=== PATIENT | male | born 1970 | race Caucasian/White ===

== ENCOUNTER → 2020-10-21 15:40 | Outpatient (BNVA) | payer OTHER, SELFPAY | PROVIDERS: Family Provider Family Medicine; PCP Family Medicine; Visit Provider Podiatrist Foot & Ankle Surgery | DX: M72.2 Plantar fascial fibromatosis (principal); M79.671 Pain in right foot; M79.672 Pain in left foot | CPT/HCPCS: 73630 ==

== ENCOUNTER 2020-11-17 06:17 | Outpatient (CLI) | payer OTHER, SELFPAY ==
--- NOTE | 2020-11-17 06:23 | AMB.MCA ---
Patient Information Referred by: 50-year-old white male presents for monoclonal antibody infusion for COVID-19. He is approximately 3 to 4 days post positive Covid. He was tested on an outside clinic. He has had significant cough but noncreased oxygen need. He denies diarrhea a lot of myalgias and flulike symptoms. Symptom onset date: 11/13/20 COVID 19 common symptoms: positive fever(s), chills, cough, non-productive cough, fatigue, body aches, headache(s), nasal congestion and nausea; negative productive cough, dyspnea, loss of sense of smell and/or taste, throat pain, vomiting or diarrhea COVID 19 other sytmptoms: negative requiring oxygen Severity: mild Treatment prior to arrival: acetaminophen OZH COVID test results: No Data to Display outside results available, scanned Criteria/Plan Inclusion/Exclusion Criteria weight >/= 40kg has diabetes not requiring hospitalization, not requiring oxygen (if not chronically on oxygen) and no increase oxygen requirement (if chronically on oxygen) Patient education patient/family/caregiver received/reviewed fact sheet, Emergency Use Authorization/unapproved drug status discussed with patient/family/caregiver, alternatives to this treatment discussed with patient/family/caregiver, risks and benefits of medication reviewed with patient/family/caregiver, patient/family/caregiver given opportunity for questions, which were answered and patient consents to receiving Monoclonal Antibody Treatment Plan for treatment Meets criteria for Monoclonal Antibody infusion Ordering Monoclonal Antibody infusion for today
[2020-11-17 06:26] VITALS: BP 116/75; PULSE 85; RESP 20; TEMP 36.9; O2SAT 96
--- NOTE | 2020-11-17 06:34 | PC.NURSE ---
patient signed consent form for BAM infusion
[2020-11-17 07:34] VITALS: BP 115/78; PULSE 83; RESP 18; TEMP 36.6; O2SAT 98
[2020-11-17 08:01] VITALS: BP 126/77; PULSE 83; RESP 18; TEMP 37.6; O2SAT 94
[2020-11-17 09:12] VITALS: BP 114/80; PULSE 85; RESP 18; TEMP 37.9
--- NOTE | 2020-11-17 09:13 | PC.NURSE ---
Post fusion 1 hour, ready to be discharge.. Pt stable and ready to go. F/U PCP
== END 2020-11-17 09:00 | disposition home or self-care (01) ==
LOC: ER 11-19 14:45
PROVIDERS: PCP Family Medicine; Visit Provider Nurse Practitioner
DX: U07.1 COVID-19 (principal)

== ENCOUNTER → 2021-12-30 09:15 | Outpatient (BNVA) | payer OTHER, SELFPAY | PROVIDERS: PCP Family Medicine; Visit Provider Family Medicine | DX: Z00.00 Encounter for general adult medical examination without abnormal findings (principal); Z51.81 Encounter for therapeutic drug level monitoring; Z79.1 Long term (current) use of non-steroidal anti-inflammatories (NSAID); E11.8 Type 2 diabetes mellitus with unspecified complications | CPT/HCPCS: 80053; 83036; 85025 ==

== ENCOUNTER → 2022-10-12 08:37 | Outpatient (BNVA) | payer OTHER, SELFPAY | PROVIDERS: PCP Family Medicine; Visit Provider Family Medicine | DX: E11.9 Type 2 diabetes mellitus without complications (principal); E78.00 Pure hypercholesterolemia, unspecified; Z51.81 Encounter for therapeutic drug level monitoring; Z13.220 Encounter for screening for lipoid disorders | CPT/HCPCS: 80053; 80061; 83036; 85025 ==

== ENCOUNTER 2023-07-31 10:08 | Emergency (ER) | payer OTHER, SELFPAY ==
[2023-07-31 10:45] VITALS: BP 124/82; PULSE 67; RESP 18; TEMP 37; O2SAT 96; BMI 28.7
[2023-07-31 10:50] LABS: Glucose Point of Care 233 mg/dL (70-110)
--- NOTE | 2023-07-31 10:54 | ECG_ITS ---
[facility] Test Date: 2023-07-31 Pat Name: Werner Fowler Department: Room: Gender: Male Vp Cardiovascular Service Line: : 1970 Requested By: Jorge A Lester Order Number: [id number] Odalys MD: Noel Jarrett M.D. Measurements Intervals [place] Rate: 62 P: 64 LA: 181 QRS: 50 QRSD: 94 T: 14 QT: 396 QTc: 403 Interpretive Statements SINUS RHYTHM WITH FREQUENT VENTRICULAR PREMATURE COMPLEXES No previous ECG available for comparison Electronically Signed On 07-31-2023 16:29:[address] Noel Jarrett M.D. [id number]
[2023-07-31 11:22] LABS: Basophils # 0.1 10^3/uL (0.0-0.1); Basophils % 1.1 %; Eosinophils # 0.2 10^3/uL (0.0-0.8); Eosinophils % 1.9 %; Hematocrit 48.2 % (37-53); Lymphocytes # 3.1 10^3/uL (0.8-4.8); Mean Corpuscular HGB Conc 32.8 g/dL (30-55); Mean Corpuscular Hemoglobin 28.7 pg (27-33); Mean Corpuscular Volume 87.5 fl (82-101); Mean Platelet Volume 10.4 fL (7.4-10.4); Monocytes # 0.9 10^3/uL (0.2-0.9); Monocytes % 9.1 %; Neutrophils # 5.66 10^3/uL (1.8-7.7); Neutrophils % 56.5 %; Nucleated Red Blood Cells % 0 %; Platelet Count 277 10^3/cmm (157-399); Red Blood Count 5.51 10^6/uL (3.85-5.65); Red Cell Distribution Width 11.6 % (12.1-15.1); White Blood Count 10.01 10^3/uL (3.29-11.43)
[2023-07-31 11:39] LABS: Alanine Aminotransferase 24 U/L (0-41); Albumin Level 4.3 g/dL (3.5-5.2); Alkaline Phosphatase 90 U/L (40-130); Anion Gap 12.6 (5-19); Aspartate Amino Transferase 24 U/L (0-40); Blood Urea Nitrogen 13 mg/dL (6-20); Calcium 9.3 mg/dL (8.5-10.5); Carbon Dioxide 28 mmol/L (22-29); Chloride 99 mmol/L (98-107); Globulin 2.9 g/dL (1.3-4.6); Glomerular Filtration Rate 78.8 mL/min (90-130); Glucose 254 mg/dL (65-115); Osmolality Calculated 289 mOsm/kg (285-295); Potassium 4.6 mmol/L (3.5-5.1); Sodium 135 mmol/L (136-145); Total Bilirubin 0.8 mg/dL (0.15-1.2); Total Protein 7.2 g/dL (6.6-8.7)
--- NOTE | 2023-07-31 14:04 | ED_ITS ---
HPI - General Adult 2 General: Chief complaint: Weakness Stated complaint: headache, dizziness Time Seen by Provider: 07/31/23 13:45 Source: patient Mode of arrival: ambulatory Limitations: no limitations History of Present Illness: Patient is a very nice 53-year-old male who presents to the ED today along with his significant other for evaluation of an episode that occurred earlier at work today around 9:30 AM. Patient states his eyes began to jump and cross and he felt like his feet were weights and the rest of his legs were Jell-O. He states he has no other symptoms. Denies feeling dizzy or lightheaded. No visual loss. He states episode lasted a few minutes before subsiding. Upon arrival to the emergency department patient states he feels normal . He was able to ambulate here in the emergency department without difficulty or assistance. He denies slurred speech, altered mental status, numbness/tingling/weakness to his arms or legs currently, or visual changes. Patient states he is a diabetic. States he is not been very compliant on diet or checking his sugars. Onset (ago): hour(s) Relieving factors: none Exacerbating factors: none Associated symptoms: Deny chest pain, confusion, dyspnea, headache(s), malaise, nausea, rash, palpitations, syncope or vomiting Treatments prior to arrival: none Review of Systems 2 Const: Denies: fever(s), chills, fatigue or malaise Eyes: Reports: other (felt like eyes were jumping/crossing earlier but subsided now); Denies: change in vision, blurry vision, blind spots, photophobia, floaters or seeing flashes ENMT: Denies: throat pain, odynophagia, ear or mastoid pain, disequilibrium, nasal discharge, nasal congestion or sinus pain Card: Denies: chest pain, palpitations, irregular heart rhythm, lightheadedness, syncope or dyspnea on exertion Resp: Denies: dyspnea, productive cough or pain on inspiration GI: Denies: abdominal pain, nausea, vomiting, heartburn or diarrhea : Denies: difficulty urinating or dysuria Musc: Reports: muscle weakness (legs felt weak earlier-none currently); Denies: neck pain, back pain, extremity pain, extremity swelling or joint pain Skin/Breast: Denies: rash Neuro: Denies: headache(s), numbness in extremities, sensory changes, lack of coordination, frequent falls, dizziness, vertigo, confusion, behavioral changes, Slurred speech present, difficulty communicating thoughts or seizure-like activity PFSH ED 2 PFSH: Medical History Hypercholesteremia Amputation of index finger Type 2 diabetes mellitus Surgical History Hx of foot surgery Right foot S/P Achilles tendon repair Right achilles H/O shoulder surgery Social History Smoking and tobacco/nicotine status: tobacco/nicotine user, details unknown smokeless tobacco Smokeless tobacco details: Quit years ago Second hand smoke exposure: No Alcohol intake: current Alcohol intake frequency: holidays/special occasions only Substance/Drug Use: never Physical Exam 2 Const: COMMON NORMALS: no acute distress, average body habitus, patient oriented x3, no limitations, healthy appearing, alert and well nourished O RIENTATION/CONSCIOUSNESS: Yes awake, Yes oriented to person, Yes oriented to place and Yes oriented to time HENMT: COMMON NORMALS: normocephalic, atraumatic and EAC's normal HEAD & SCALP: normal to inspection, normocephalic and atraumatic FACE & SINUS: n ormal facial exam and face symmetric EXTERNAL AUDITORY CANAL: EAC's normal Eye: COMMON NORMALS: Equal, round and reactive pupils present and EOMs intact bilaterally GENERAL EYE: appearance normal, both eyes and all related structures and normal light reflex VISUAL [place]: No peripheral vision loss, No central vision loss, No left visual field cut, No right visual field cut, No bitemporal visual field cut, No binasal visual field cut and No visual field cut by quadrant ALIGNMENT: Yes alignment normal PUPIL: Yes Equal, round and reactive pupils present DIRECT OPHTHALMOSCOPY: Yes normal light reflex Neck/C-Spine: COMMON NORMALS: full ROM, no lymphadenopathy, supple and no meningeal signs Resp: COMMON NORMALS: normal respiratory effort and clear to auscultation bilaterally AUSCULTATION: clear to auscultation bilaterally Cardio: COMMON NORMALS: regular rate and regular rhythm RATE: regular rate RHYTHM: regular rhythm Extremity: COMMON NORMALS: normal to inspection, no clubbing, cyanosis or edema, no calf tenderness and no pedal edema GENERAL: Yes normal exam except as noted Neuro: PIETRO COMA SCALE: document GCS findings Pietro coma scale eye opening: Spontaneous Pietro coma scale verbal response: Orientated Pietro coma scale motor response: Obey commands [place] coma scale total score: 15 COMMON NORMALS: patient oriented x3, CN's II-XII intact bilaterally, moves all extremities, no focal motor deficits, no sensory deficits noted and gait normal SENSORIUM/ORIENTATION: Yes alert, Yes oriented to person, Yes oriented to place and Yes oriented to time MENINGEAL SIGNS: Yes no meningeal signs S PEECH: speech normal GAIT: Yes Normal gait present MOTOR EXAM: 5/5 motor strength present throughout Skin: COMMON NORMALS: no rashes or lesions noted GENERAL SKIN EXAM: no rashes or lesions noted Course 2 Vital Signs: Vital signs: Vital Signs Temperature 98.6 F 07/31/23 10:45 Pulse Rate 67 07/31/23 10:45 Respiratory Rate 18 07/31/23 10:45 Blood Pressure 124/82 07/31/23 10:45 Pulse Oximetry 96 07/31/23 10:45 Oxygen Delivery Me thod Room Air 07/31/23 10:45 MDM - General Adult Medical Decision Making Patient has a completely normal neurologic examination on today's visit. Based on history I do not have any concern at this time for TIA/CVA. Unknown exact etiology of his symptoms but at this time they do not seem emergently concerning. Blood work was obtained and essentially unremarkable apart from his elevated glucose. As previously stated, patient admitting has not been very compliant with his diet or checking his sugars. He has been taking his metformin. Recommend patient follow-up with his primary care provider by the end of the week for reevaluation. Strict return ED precautions given. Lab Data 07/31/23 11:04 07/31/23 11:04 Laboratory Results WBC 10.01 10^3/uL (3.29-11.43) 07/31/23 11:04 RBC 5.51 10^6/uL (3.85-5.65) 07/31/23 11:04 Hgb 15.80 g/dL (11.27-16.99) 07/31/23 11:04 Hct 48.2 % (37-53) 07/31/23 11:04 MCV 87.5 fl (82-101) 07/31/23 11:04 MCH 28.7 pg (27-33) 07/31/23 11:04 MCHC 32.8 g/dL (30-55) 07/31/23 11:04 RDW 11.6 % (12.1-15.1) L 07/31/23 11:04 Plt Count 277 10^3/cmm (157-399) 07/31/23 11:04 MPV 10.4 fL (7.4-10.4) 07/31/23 11:04 Neut % (Auto) 56.5 % 07/31/23 11:04 Lymph % (Auto) 31.0 % 07/31/23 11:04 Sully % (Auto) 9.1 % 07/31/23 11:04 Eos % (Auto) 1.9 % 07/31/23 11:04 Baso % (Auto) 1.1 % 07/31/23 11:04 Neut # (Auto) 5.66 10^3/uL (1.8-7.7) 07/31/23 11:04 Lymph # (Auto) 3.1 10^3/uL (0.8-4.8) 07/31/23 11:04 Sully # (Auto) 0.9 10^3/uL (0.2-0.9) 07/31/23 11:04 Eos # (Auto) 0.2 10^3/uL (0.0-0.8) 07/31/23 11:04 Baso # (Auto) 0.1 10^3/uL (0.0-0.1) 07/31/23 11:04 Nucleated RBC % (auto) 0 % 07/31/23 11:04 Nucleated RBCs # 0.0 /100WBC 07/31/23 11:04 Sodium 135 mmol/L (136-145) L 07/31/23 11:04 Potassium 4.6 mmol/L (3.5-5.1) 07/31/23 11:04 Chloride 99 mmol/L (98-107) 07/31/23 11:04 Carbon Dioxide 28 mmol/L (22-29) 07/31/23 11:04 Anion Gap 12.6 (5-19) 07/31/23 11:04 BUN 13 mg/dL (6-20) 07/31/23 11:04 Creatinine 1.0 mg/dL (0.7-1.2) 07/31/23 11:04 GFR Calculation 78.8 mL/min (90-130) L 07/31/23 11:04 Glucose 254 mg/dL (65-115) H 07/31/23 11:04 POC Glucose 233 mg/dL (70-110) H 07/31/23 10:47 Calculated Osmolality 289 mOsm/kg (285-295) 07/31/23 11:04 Calcium 9.3 mg/dL (8.5-10.5) 07/31/23 11:04 Total Bilirubin 0.8 mg/dL (0.15-1.2) 07/31/23 11:04 AST 24 U/L (0-40) 07/31/23 11:04 ALT 24 U/L (0-41) 07/31/23 11:04 Alkaline Phosphatase 90 U/L (40-130) 07/31/23 11:04 Total Protein 7.2 g/dL (6.6-8.7) 07/31/23 11:04 Albumin 4.3 g/dL (3.5-5.2) 07/31/23 11:04 Globulin 2.9 g/dL (1.3-4.6) 07/31/23 11:04 No radiology studies performed this visit Discharge Plan Discharge Patient Disposition: Home Clinical Impression: Transient leg weakness Condition: Stable Prescriptions: No Action (DME) blood-glucose meter Kit See Rx Instructions .Route Qty: 1 0RF Rx Instructions: As directed sertraline 50 mg tablet See Rx Instructions .ROUTE .COMPLEX Qty: 30 8RF Dose Instruction: Take 1 tablet by mouth once daily Rx Instructions: Take 1 tablet by mouth once daily atorvastatin 20 mg tablet See Rx Instructions .ROUTE .COMPLEX Qty: 30 8RF Dose Instruction: TAKE 1 TABLET BY MOUTH ONCE DAILY AT NIGHT Rx Instructions: TAKE 1 TABLET BY MOUTH ONCE DAILY AT NIGHT metformin 1,000 mg tablet 1,000 mg PO BID Qty: 60 3RF Discharge Orders: Discharge ED (Routine); Ordered 07/31/23 Ordered By: Linda Gallegos Referrals: Jaime Venegas MD [Primary Care Provider] - Activity Restrictions/Additional Instructions: As we discussed I would like you to follow-up with Dr. Venegas later this week for reevaluation. We need to see you back to the emergency department for complaints of severe headache, slurred speech, facial drooping, numbness/tingling/loss of sensation/weakness to your arms or legs, altered mental status, blurred or loss of vision, or any other concerns you may have. Coding Level of Care Code ED Data Input Clerk for Elda Ann
== END 2023-07-31 14:29 | disposition home or self-care (01) ==
PROVIDERS: Emergency Medicine; Emergency Provider Physician Assistant; PCP Family Medicine
DX: R53.1 Weakness (principal); Z79.84 Long term (current) use of oral hypoglycemic drugs; E11.9 Type 2 diabetes mellitus without complications; Z87.891 Personal history of nicotine dependence
CPT/HCPCS: 36415; 36416; 80053; 82962; 85025; 93005; 99284

== ENCOUNTER → 2023-08-13 16:35 | Outpatient (BNVA) | payer OTHER, SELFPAY | PROVIDERS: PCP Family Medicine; Visit Provider Family Medicine | DX: E11.9 Type 2 diabetes mellitus without complications (principal); E53.8 Deficiency of other specified B group vitamins | CPT/HCPCS: 82607; 83036 ==

== ENCOUNTER 2024-12-30 18:48 | Observation (INO) | payer OTHER, SELFPAY ==
--- OUTSIDE RECORDS SUMMARY | 2024-12-30 18:52 | XMS_ITS | Patient Health Record ---
Author Organization [facility] Address [address] [place], [place] [id number] Care Team Providers Care Career Placement Specialist Name Role Phone Jaime Venegas MD Primary Care Provider Arjun Lundberg MD, Shay Unavailable [phone] Allergies Allergen (clinical drug ingredient) Drug/Non Drug Allergy documented on EMR Reaction Allergy Type Onset Date Status penicillin Unknown Drug Allergy Active Reason For Referral No Information Medications Medication SIG (Take, Route, Frequency, Duration) Notes Start Date End Date Status Glucosamine and Chondroitin with MSM 400 mg-500 mg-250 mg 1 tab orally as directed Act jose Centrum Silver Therapeutic Multiple Vitamins with Minerals 1 tab orally once a day Acti ve Social History Tobacco Use: Social History Observation Description Date Details (start date - stop date) Never Smoker NA - NA Tobacco use: Question Answer Notes : nonsmoker Problems Problem Type SNOMED Code ICD Code Onset Dates Problem Status W/U Status Risk Notes Problem Solitary sacroiliitis (691221109) Sacroiliitis, not elsewhere classified (M46.1) Active confirmed Problem Low back pain (353970682) Low back pain (M54.5) Active confirmed Problem Lumbosacral spondylosis without myelopathy (55800934) Spondylosis without myelopathy or radiculopathy, lumbar region (M47.816) Active confirmed Problem Anxiety disorder (945744639) Other specified anxiety disorders (F41.8) Active confirmed Problem Sleep disorder (42786769) Other sleep disorders (G47.8) Active confirmed Problem Right hip pain (522216700801808) Pain in right hip (M25.551) Active confirmed Problem Arthralgia of the pelvic region and thigh (398089897) Pain in left hip (M25.552) Active confirmed Problem Radiculopathy due to lumbar intervertebral disc disorder (871486160885601) Intervertebral disc disorders with radiculopathy, lumbar region (M51.16) Active confirmed Problem Disorder of lumbar disc (593762386) Other intervertebral disc disorders, lumbar region (M51.86) Active confirmed Problem Myalgia (35297845) Myalgia (M79.1) Active confirmed Problem Long-term current use of drug therapy (684280589) Other care home (current) drug therapy (Z79.899) Active confirmed Plan Of Treatment No Information Insurance Providers Payer Name Payer Address Payer Phone Subscriber Number Group Number Insured Name Patient Relationship to Insured Coverage Start Date Coverage End Date [employer] [employer] [place] [address] [id number] [facility] Anabel Fowler Spouse - patient is the spouse of the insured Medical (General) History Medical History History ICD Code Left hip problems Low back pain Surgical History Surgery Date(Month/Year) Removal of rock in the right [place] [facility] 1990 Reconstruction of right Achilles tendon - [place] 2005 Partial amputation of left index finger - [facility] [place] 2010 Right rotator cuff - Dr. Elicia Munoz 2012 Left rotator cuff - Dr. Elicia gonzalez 2014 Left rotator cuff - [place] Dr. Nena orozco 2015 Hospitalization History Reason Date(Month/Year)
[2024-12-30 19:01] VITALS: BP 133/86; PULSE 81; RESP 16; TEMP 37.2; O2SAT 98; BMI 29.5
--- NOTE | 2024-12-30 19:19 | XRR_ITS ---
PROCEDURE INFORMATION: Exam: XR Right Hand Exam date and time: 12/30/2024 7:19 PM Age: 54 years old Clinical indication: Injury or trauma; Other: Punched glass; Blunt trauma (contusions or hematomas); Hand; Right TECHNIQUE: Imaging protocol: Radiologic exam of the right hand. Views: 3 or more views. COMPARISON: No relevant prior studies available. FINDINGS: Bones/joints: Normal. Soft tissues: Normal. XR/XR hand RT min 3V* [id number] IMPRESSION: No acute findings.
--- NOTE | 2024-12-30 19:25 | ED.C_ITS ---
HPI - Psych 2 General: Chief Complaint: Psychiatric Symptoms Stated Complaint: MHE Time Seen by Provider: 12/30/24 18:52 Source: patient Mode of arrival: ambulatory Limitations: no limitations History of Present Illness: 54-year-old male states he is having rel ationship issues with his he is very upset today states he feels like his mind is wandering he had punched a glass with his right hand. He states he has been depressed he has had some passing suicidal thoughts but no specific plans. Associated symptoms: Reports depression Related Data Previous Rx's ?Medication ?Instructions ?Recorded blood-glucose meter #1 ea 04/25/22 acyclovir 400 mg tablet 400 mg PO .5x/day 7 days #35 tabs 08/13/23 blood sugar diagnostic (Accu-Chek #100 ea 08/13/23 Guide test strips) blood-glucose meter (Accu-Chek #1 ea 08/13/23 Guide Glucose Meter) insulin detemir U-100 100 unit/mL 15 unit (0.15 mL) FOSS BCUT DAILY #15 08/13/23 (3 mL) subcutaneous pen mL lancets (Accu-Chek Softclix #100 ea 08/16/23 Lancets) insulin glargine U-300 conc 300 15 unit (0.05 mL) SUBC UT DAILY 09/10/23 unit/mL (1.5 mL) subcutaneous pen #4.5 mL (Toujeo SoloStar U-300 Insulin) metformin 1,000 mg tablet See Rx Instructions .Route 0 08/08/24 .COMPLEX #60 tabs atorvastatin 20 mg tablet See Rx Instructions .Route 0 09/09/24 .COMPLEX #30 tabs sertraline 50 mg tablet See Rx Instructions .Route 0 09/09/24 .COMPLEX #30 tabs Allergies Allergy/AdvReac Type Severity Reaction Status Date / Time Penicillins Allergy Mild Hives Verified 12/30/24 19:12 Review of Systems 2 Const: Denies: fever(s), chills, body aches or change in appetite ENMT: Denies: throat pain or dental pain Card: Denies: chest pain Resp: Denies: dyspnea GI: Denies: abdominal pain, nausea, vomiting or diarrhea Musc: Denies: neck pain or back pain Skin/Breast: Denies: rash Neuro: Denies: headache(s) Psych: Reports: depression PFSH ED 2 PFSH: Medical History COVID-19 11/2020 Hypercholesteremia Amputation of index finger Type 2 diabetes mellitus Surgical History Hx of foot surgery Right foot S/P Achilles tendon repair Right achilles H/O shoulder surgery Social History Smoking and tobacco/nicotine status: tobacco/nicotine user, details unknown smokeless tobacco Smokeless tobacco details: Quit years ago Second hand smoke exposure: No Alcohol intake: current Alcohol intake frequency: holidays/special occasions only Substance/Drug Use: never Physical Exam 2 Const: COMMON NORMALS: no acute distress, patient oriented x3 and healthy appearing HENMT: COMMON NORMALS: normocephalic and atraumatic HEAD & SCALP: n ormocephalic and atraumatic Eye: COMMON NORMALS: conjunctivae normal CONJUNCTIVA: Yes conjunctivae normal Neck/C-Spine: COMMON NORMALS: full ROM and supple Chest: COMMONS NORMALS: normal inspection of the chest Resp: COMMON NORMALS: normal respiratory effort Cardio: COMMON NORMALS: regular rate RATE: regular rate Extremity: COMMON NORMALS: normal to inspection and full ROM Neuro: COMMON NORMALS: patient oriented x3, moves all extremities and no focal motor deficits Psych: COMMON NORMALS: mental status grossly normal, Normal thought process present and cooperative THOUGHT PROCESS: Normal thought process present Skin: COMMON NORMALS: no rashes or lesions noted and no wounds GENERAL SKIN EXAM: no rashes or lesions noted Course 2 Vital Signs: Vital signs: Vital Signs Temperature 99.0 F 12/30/24 19:01 Pulse Rate 60 12/30/24 20:18 Respiratory Rate 16 12/30/24 19:01 Blood Pressure 131/82 12/30/24 20:18 Pulse Oximetry 95 12/30/24 20:18 Oxygen Delivery Me thod Room Air 12/30/24 20:18 MDM - Psych Medical Decision Making Patient presents for suicidal ideation he is medically cleared will admit at this time. Medical Records I reviewed the patient's medical records. Lab Data I reviewed the patient's lab results. 12/30/24 19:48 12/30/24 19:48 No radiology studies performed this visit Discharge Plan Discharge Patient Disposition: Admitted As Inpatient Admit Provider: Giovanni Albrecht Clinical Impression: Suicidal ideation Condition: Stable Coding Level of Care Code ED Environmental Health Safety Engineer for Elda Ann
[2024-12-30 19:54] LABS: Hematocrit 51.4 % (37-53); Hemoglobin 17.10 g/dL (11.27-16.99); Mean Corpuscular HGB Conc 33.3 g/dL (30-55); Mean Corpuscular Hemoglobin 28.6 pg (27-33); Mean Corpuscular Volume 86.0 fl (82-101); Nucleated Red Blood Cells % 0 %; Platelet Count 278 10^3/cmm (157-399); Red Blood Count 5.98 10^6/uL (3.85-5.65); White Blood Count 10.10 10^3/uL (3.29-11.43)
[2024-12-30 20:09] LABS: Alanine Aminotransferase 23 U/L (0-41); Albumin Level 4.5 g/dL (3.5-5.2); Alkaline Phosphatase 96 U/L (40-130); Anion Gap 18.2 (5-19); Aspartate Amino Transferase 17 U/L (0-40); Blood Urea Nitrogen 14 mg/dL (6-20); Calcium 9.5 mg/dL (8.5-10.5); Carbon Dioxide 23 mmol/L (22-29); Chloride 99 mmol/L (98-107); Creatinine Clr Calc Pharmacy 120.2471; Globulin 3.1 g/dL (1.3-4.6); Glucose 280 mg/dL (65-115); Osmolality Calculated 293 mOsm/kg (285-295); Potassium 4.2 mmol/L (3.5-5.1); Sodium 136 mmol/L (136-145); Total Protein 7.6 g/dL (6.6-8.7)
[2024-12-30 20:11] LABS: Acetaminophen < 5.0 ug/mL (10-30); Alcohol Level < 10 mg/dL (0-10); Salicylate < 0.3 mg/dL (3-10)
[2024-12-30 20:18] VITALS: BP 131/82; PULSE 60; O2SAT 95
--- NOTE | 2024-12-30 20:30 | PC.NURSE ---
this rn and security read 96 hour rights to pt. pt verbalized understanding and had no further questions. pt provided copy of 96 hr rights.
[2024-12-30 21:45] VITALS: BP 124/79; BP 148/84; PULSE 69; PULSE 81; RESP 20; TEMP 37.3; O2SAT 95; O2SAT 96
[2024-12-30 21:46] VITALS: BP 148/84; PULSE 69; O2SAT 95
[2024-12-30 22:23] LABS: PCP Screen Urine Negative (Negative)
--- NOTE | 2024-12-31 05:49 | W.PM.NPUH&PS ---
Providers/Chief Complaint Admitting Physician: Giovanni Albrecht MD Primary Care Provider: Jaime Venegas MD Chief Complaint: MHE HPI NPU History of Present Illness Werner Fowler is a 54 year old male who presented to the emergency department with the following report: Chief Complaint: Psychiatric Symptoms Stated Complaint: MHE Time Seen by Provider: 12/30/24 18:52 Source: patient Mode of arrival: ambulatory Limitations: no limitations History of Present Illness: 54-year-old male states he is having relationship issues with his he is very upset today states he feels like his mind is wandering he had punched a glass with his right hand. He states he has been depressed he has had some passing suicidal thoughts but no specific plans. Associated symptoms: Reports depression. He was admitted to the neuropsychiatric unit for definitive treatment of those issues. He is unknown to [facility] psychiatry through inpatient or outpatient services. He does have documentation of services going back to 2004 for various concerns including emergency room visits [facility]. His UDS was negative and his blood alcohol level was unremarkable. He endorsed depression surrounding this situation admixed with anxiety. He did report that there was a text that he sent out of frustration but denied any credible lethality. He presents today reporting: Chief complaint Emotional distress and agitation following the sudden departure of spouse and children, with spouse filing for divorce and restricting access to children. History of the present complaint Reported a recent acute emotional crisis following the unexpected departure of spouse, who left with the children without prior warning. Stated that spouse left a note indicating intent to file for divorce and specifying that future contact with the children would require supervision. Expressed significant distress and feelings of being blindsided, describing the event as feeling like being hit in the face with a ball. Denied any prior indication or discussion of separation or divorce in the preceding months, stating that the event was entirely unexpected and that there were no signs or warnings leading up to it. Described a strong emotional reaction at the time of the incident, including flipping out and losing it during a phone conversation with spouse. Reported that spouse called the police during this episode, leading to law enforcement involvement. Denied any history of depression, anxiety, or traumatic events in childhood or adulthood prior to this incident. Denied any previous psychiatric hospitalizations, therapy, or counseling, except for marriage counseling several years ago related to marital issues. Denied any prior use of psychiatric medications for depression or anxiety, though mentioned possible recent prescription of sertraline (Zoloft) but was unsure of details and did not recall taking it. Expressed ongoing emotional distress related to the loss of access to children and the perception of being unfairly portrayed as a monster to the children by spouse. Reported feeling undermined in the parental role and described a sense of being in a nowhere situation. Stated that one child has ADHD and acknowledged challenges in parenting, including needing to raise voice to manage behavior, but denied any abusive behavior. Expressed desire to maintain a relationship with children and frustration with spouse's unilateral decisions regarding custody and visitation. Reported support from brother, who was contacted immediately after the incident for emotional support. Denied current suicidal or homicidal ideation. Denied any history of substance abuse, including tobacco, alcohol, marijuana, or other drugs, except for occasional alcohol use in the past, which ceased after having children. Denied any legal issues related to substance use. Denied any history of abuse in childhood. Reported current use of metformin and a cholesterol medication for unspecified medical conditions. Denied any known medication allergies. No other psychiatric symptoms, functional impairments, or significant medical history reported prior to the current crisis. Mental health history No history of psychiatric hospitalization. No history of therapy or counseling, except for marriage counseling several years ago. No history of medications for mental health, depression, or anxiety, although there was a mention of a recent attempt to prescribe Zoloft (sertraline). No reported issues with depression, anxiety, or traumatic events throughout life. No childhood abuse reported. Social history with children, currently experiencing marital separation. has left with the children, leading to significant distress. Employed at [employer] for 33 years, working a shift from 7:30 AM to 3:30 PM. No tobacco use, quit 20 years ago after starting in his 20s. Occasional alcohol use, previously a weekend drinker before marriage and children. No history of drug use or possession charges. works at the [employer]. Enjoys fishing. No mention of exercise or diet habits. Meds NPU Home Medications ?Medication ?Instructions ?Recorded ?Confirmed ?Last Taken ?Type insulin detemir U-100 100 unit/mL 15 unit (0.15 mL) SUBCUT DAILY #15 08/13/23 12/30/24 Unknown Rx (3 mL) subcutaneous pen mL insulin glargine U-300 conc 300 15 unit (0.05 mL) SUBCUT DAILY 09/10/23 12/30/24 Unknown Rx unit/mL (1.5 mL) subcutaneous pen #4.5 mL (Toukyle SoloStar U-300 Insulin) atorvastatin 20 mg tablet 20 mg PO BEDTIME 12/30/24 12/30/24 Unknown History metformin 1,000 mg tablet 1,000 mg PO BID 12/30/24 12/30/24 Unknown History sertraline 50 mg tablet 50 mg PO DAILY 12/30/24 12/30/24 Unknown History Allergies Allergy/AdvReac Type Severity Reaction Status Date / Time Penicillins Allergy Mild Hives Verified 12/30/24 19:12 PFSH NPU PFSH: Medical History (Updated 01/01/25 @ 07:17 by Giovanni Albrecht MD) COVID-19 11/2020 Hypercholesteremia Amputation of index finger Type 2 diabetes mellitus Surgical History Hx of foot surgery Right foot S/P Achilles tendon repair Right achilles H/O shoulder surgery Social History Smoking and tobacco/nicotine status: tobacco/nicotine user, details unknown smokeless tobacco Smokeless tobacco details: Quit years ago Second hand smoke exposure: No Alcohol intake: current Alcohol intake frequency: holidays/special occasions only Substance/Drug Use: never Mental Status Exam MSE Comments: This is overweight white male in hospital scrubs with adequate grooming and eye contact. No abnormal movements except for mild psychomotor retardation. Cooperative with exam in mild distress. Speech was slightly decreased rate but normal volume. Mood described as as good as can be expected but frustrated with the situation, affect congruent but appropriate for the situation. Thought process organized. Thought content: Patient denied suicidal or homicidal ideation, there were no delusions reported or noted, he denied any auditory or visual hallucinations. Significant stressor is the sudden departure of his with the children and the filing for divorce. Describes feeling blindsided and upset due to the situation. Attention and concentration were intact and memory appeared reliable but no more formally tested. He is alert and oriented x 3. Insight and judgment appeared fair, impulse control appeared fair though he acknowledges having a breakdown with the announcement and position that his is taking. Vitals/I&O/Wt Last Vital Signs Temp 99.2 F 12/30/24 21:45 Pulse 69 12/30/24 21:46 Resp 20 H 12/30/24 21:45 BP 148/84 12/30/24 21:46 Pulse Ox 95 12/30/24 21:46 O2 Del Method Room Air 12/30/24 21:46 Weight last 48 hrs Weight 90.718 kg Data NPU 12/30/24 19:48 12/30/24 19:48 A&P Assessment and plan 1. Suicidal ideation: 2. Anxiety: 3. Parent-child relational problem: 4. Marital/partner relational problem: Plan: This is a 54-year-old white male with no past mental health history or significant issues with addiction noted who presented to the emergency department after he was blindsided with the revelation that his was leaving him and had taken their 9 and 14-year-old children with her. He was upset about her leaving but more of his anger was related to her identifying that he was not going to be able to see his children until the 2 of them took parenting classes. He had a moment of anger where he lashed out in relation to this report that she was in control of their children, but denies any longitudinal symptoms to be addressed. The patient is experiencing significant emotional distress following the unexpected departure of his and children, which has led to a heightened state of anxiety and feelings of being blindsided. There is no indication of prior mental health issues or treatment, and the current situation appears to be a reaction to the sudden and unforeseen family separation. The patient is dealing with the emotional impact of the situation, including feelings of loss and frustration regarding his parenting role and access to his children. Plan Advise to have someone hold guns for a few days to protect from potential situations. Suggest getting legal representation to address custody and visitation issues. Consider talking to someone for support, possibly through employee assistance programs. Plan to talk with brother and/or other significant supports to ensure they can vouch for stability and readiness to return home. 1. Continue without medication. 2. Encourage individual, group and milieu therapy. 3. Continue every 15 minute checks for safety. 4. Obtain collateral information. 5. Patient on 96-hour hold but this was entered conservatively out of extreme caution. Will work on the collateral information and barring any unexpected information we will likely discharge in the morning. 6. Advised patient to have his brother or close confident hold his guns briefly while this explosive situation is being navigated. PDMP PDMP Reviewed: Not Reviewed Involuntary Hold Information Hold Status: Legal Status: 96 Hour Hold Date/Time Hold Expires: 01/05/25@19:45 Attestations NPU Medical Necessity Statement*: Inpatient hospitalization is medically necessary and the clinically appropriate intervention at this time.? We will monitor/initiate medications and make changes as indicated.? The patient will be in the hospital for over 2 midnights.? The patient?s likely length of stay 1-2 days. Coding Level of Care Code Acute Code for Chg Fwd Diagnoses Suicidal ideation R45.851 Anxiety F41.9 Parent-child relational problem Z62.820 Marital/partner relational problem Z63.0
[2024-12-31 06:00] VITALS: BP 112/76; PULSE 67; RESP 16; O2SAT 96
[2024-12-31 14:00] VITALS: BP 119/77; PULSE 79; RESP 16; TEMP 37.2; O2SAT 97
[2024-12-31 20:15] VITALS: BP 117/81; PULSE 78; RESP 16; TEMP 36.7; O2SAT 98
[2024-12-31] MEDS: ATORVASTATIN 10 MG TABLET 20 MG PO (22:08)
[2025-01-01 06:00] VITALS: BP 101/68; PULSE 79; RESP 16; O2SAT 97
[2025-01-01] MEDS: insulin glargine 100 units/1 mL 15 UNIT SUBCUT (07:55)
--- OUTSIDE RECORDS SUMMARY | 2025-01-01 08:06 | XMS_ITS | Patient Health Record ---
Author Organization [facility] Address [address] [place], [place] [id number] Care Team Providers Care Nursery Manager Name Role Phone Jaime Venegas MD Primary Care Provider Arjun Lundberg MD, Shay Unavailable [phone] Allergies Allergen (clinical drug ingredient) Drug/Non Drug [...] W/U Status Risk Notes Problem Solitary sacroiliitis (510914831) Sacroiliitis, not elsewhere classified (M46.1) Active confirmed Problem Low back pain (386909015) Low back pain (M54.5) Active confirmed Problem Lumbosacral spondylosis without myelopathy (39482922) Spondylosis without myelopathy or radiculopathy, lumbar region (M47.816) Active confirmed Problem Anxiety disorder (253972708) Other specified anxiety disorders (F41.8) Active confirmed Problem Sleep disorder (91578797) Other sleep disorders (G47.8) Active confirmed Problem Right hip pain (324688093292752) Pain in right hip (M25.551) Active confirmed Problem Arthralgia of the pelvic region and thigh (429898667) Pain in left hip (M25.552) Active confirmed Problem Radiculopathy due to lumbar intervertebral disc disorder (972614924279135) Intervertebral disc disorders with radiculopathy, lumbar region (M51.16) Active confirmed Problem Disorder of lumbar disc (748992342) Other intervertebral disc disorders, lumbar region (M51.86) Active confirmed Problem Myalgia (85884192) Myalgia (M79.1) Active confirmed Problem Long-term current use of drug therapy (312641806) Other group home (current) drug therapy (Z79.899) Active confirmed Plan Of Treatment No Information Insurance Providers Payer Name Payer Address Payer Phone Subscriber Number Group Number Insured Name Patient Relationship to Insured Coverage Start Date Coverage End Date [employer] [address] [place] [address] [id number] [facility] Anabel Fowler Spouse - patient is the spouse of the insured Medical (General) History Medical History History ICD Code Left hip problems Low back pain Surgical History Surgery Date(Month/Year) Removal of rock in the right [place] [facility] 1990 Reconstruction of right Achilles tendon - [place] 2005 Partial amputation of left index finger - [facility] [place] 2010 Right rotator cuff - Dr. Elicia Munoz 2012 Left rotator cuff - Dr. Elicia gonzalez 2014 Left rotator cuff - [place] Dr. Nena orozco 2015 Hospitalization History Reason Date(Month/Year)
--- NOTE | 2025-01-01 12:12 | W.PM.NPUDCS ---
Diagnoses at Discharge Discharge Diagnosis 1. Suicidal ideation: 2. Anxiety: 3. Parent-child relational problem: 4. Marital/partner relational problem: Reason for Visit Reason for Visit: MHE Brief History: Chief Complaint: MHE HPI NPU History of Present Illness Werner Fowler is a 54 year old male who presented to the emergency department with the following report: Chief Complaint: Psychiatric Symptoms Stated Complaint: MHE Time Seen by Provider: 12/30/24 18:52 Source: patient Mode of arrival: ambulatory Limitations: no limitations History of Present Illness: 54-year-old male states he is having relationship issues with his he is very upset today states he feels like his mind is wandering he had punched a glass with his right hand. He states he has been depressed he has had some passing suicidal thoughts but no specific plans. Associated symptoms: Reports depression. He was admitted to the neuropsychiatric unit for definitive treatment of those issues. He is unknown to [facility] psychiatry through inpatient or outpatient services. He does have documentation of services going back to 2004 for various concerns including emergency room visits excetra. His UDS was negative and his blood alcohol level was unremarkable. He endorsed depression surrounding this situation admixed with anxiety. He did report that there was a text that he sent out of frustration but denied any credible lethality. He presents today reporting: Chief complaint Emotional distress and agitation following the sudden departure of spouse and children, with spouse filing for divorce and restricting access to children. History of the present complaint Reported a recent acute emotional crisis following the unexpected departure of spouse, who left with the children without prior warning. Stated that spouse left a note indicating intent to file for divorce and specifying that future contact with the children would require supervision. Expressed significant distress and feelings of being blindsided, describing the event as feeling like being hit in the face with a ball. Denied any prior indication or discussion of separation or divorce in the preceding months, stating that the event was entirely unexpected and that there were no signs or warnings leading up to it. Described a strong emotional reaction at the time of the incident, including flipping out and losing it during a phone conversation with spouse. Reported that spouse called the police during this episode, leading to law enforcement involvement. Denied any history of depression, anxiety, or traumatic events in childhood or adulthood prior to this incident. Denied any previous psychiatric hospitalizations, therapy, or counseling, except for marriage counseling several years ago related to marital issues. Denied any prior use of psychiatric medications for depression or anxiety, though mentioned possible recent prescription of sertraline (Zoloft) but was unsure of details and did not recall taking it. Expressed ongoing emotional distress related to the loss of access to children and the perception of being unfairly portrayed as a monster to the children by spouse. Reported feeling undermined in the parental role and described a sense of being in a nowhere situation. Stated that one child has ADHD and acknowledged challenges in parenting, including needing to raise voice to manage behavior, but denied any abusive behavior. Expressed desire to maintain a relationship with children and frustration with spouse's unilateral decisions regarding custody and visitation. Reported support from brother, who was contacted immediately after the incident for emotional support. Denied current suicidal or homicidal ideation. Denied any history of substance abuse, including tobacco, alcohol, marijuana, or other drugs, except for occasional alcohol use in the past, which ceased after having children. Denied any legal issues related to substance use. Denied any history of abuse in childhood. Reported current use of metformin and a cholesterol medication for unspecified medical conditions. Denied any known medication allergies. No other psychiatric symptoms, functional impairments, or significant medical history reported prior to the current crisis. Mental health history No history of psychiatric hospitalization. No history of therapy or counseling, except for marriage counseling several years ago. No history of medications for mental health, depression, or anxiety, although there was a mention of a recent attempt to prescribe Zoloft (sertraline). No reported issues with depression, anxiety, or traumatic events throughout life. No childhood abuse reported. Social history with children, currently experiencing marital separation. has left with the children, leading to significant distress. Employed at [employer] for 33 years, working a shift from 7:30 AM to 3:30 PM. No tobacco use, quit 20 years ago after starting in his 20s. Occasional alcohol use, previously a weekend drinker before marriage and children. No history of drug use or possession charges. works at the [employer]. Enjoys fishing. No mention of exercise or diet habits. Hospital Course Hospital Course Patient acclimated to the individual, group and milieu therapies provided. He presented with significant challenges with his marriage as his had not reported any recent concerns or problems though there had been some the past and had given the impression that there was going to be a very normal day a couple of days ago but then he came home to a letter reporting that she had left and that he would not be able to see the children until they figure it out the situation. He denied any significant mental health or addiction issues reporting some challenges with his relationship that had led to him considering Zoloft for his anxiety/depression and he was given access to that medication at 50 mg. He had a self-reported extreme outburst as he was trying to negotiate with his to not unilaterally decided that their kids could not see him. Secondary to that moments the police were called and he came over and was placed on a 6-hour hold but had no concerns or challenges with the emergency room staff or here on the unit. We discussed making sure that his guns were with someone else for the time being. Social work team and patient agreed and worked on that outcome. He expressed that the situation was related to very different views on how to discipline and manage the children. He denied any significant issues that would make his presence of the children problematic. He denied any history of physical abuse and denied any emotional abuse or aggressive behaviors. He did acknowledge that he does discipline his children and that his does not approve of his approach. There were no reports or self reports of behaviors that would create a situation where he would not have equal access to his children. No reports that we received during a time he was in the hospital suggest that any reason why he should not be in a coparent. We observed him across the approximately 48 hours without concern. We did recommend outpatient therapy if nothing else to manage the challenges of his current situation. Access to as needed medications and the Zoloft as well as being in the treatment milieu led to a positive response. He had modest improvement during his stay if nothing else in his ability to identify at that a 1 on 1 topic with his would not be productive in any way and that issues surrounding custody and his access to the children should be handled through the legal means that she is not going to give him equal access without providing a significant foundation for why she would even suggest that he should not be able to see his children until issues are worked out. He worked with the social work team to get appropriate outpatient appointments. He was able to contract for safety outside of the hospital, prior to discharge. During the hospitalization, patient had routine laboratory studies which were within normal limits except for few outliers. Additionally there was a general medical evaluation which was also within normal limits and revealed no new acute processes. Discharge Summary: At the time of discharge, he denied psychosis or lethality. Mood and anxiety were well managed. Patient endorsed a plan to avoid all drugs of abuse and follow-up with the aftercare recommendations of the treatment team. Patient was evaluated and deemed to be absent credible lethality, and had achieved the maximum benefit from an inpatient hospitalization, so was discharged. Involuntary Hold Information Hold Status: Legal Status: 96 Hour Hold Date/Time Hold Expires: 01/05/25@19:45 Mental Status Exam MSE Comments: This is overweight white male in hospital scrubs with adequate grooming and eye contact. No abnormal movements except for mild psychomotor retardation. Cooperative with exam in mild distress. Speech was slightly decreased rate but normal volume. Mood described as as good as can be expected, affect congruent but appropriate for the situation. Thought process organized. Thought content: Patient denied suicidal or homicidal ideation, there were no delusions reported or noted, he denied any auditory or visual hallucinations. Significant stressor is the sudden departure of his with the children and the filing for divorce. Describes feeling blindsided and upset due to the situation. Attention and concentration were intact and memory appeared reliable but no more formally tested. He is alert and oriented x 3. Insight and judgment appeared fair, impulse control appeared fair though he acknowledges having a breakdown with the announcement and position that his is taking. Discharge Data Studies Completed and Pending: Completed Studies During Hospitalization Category Date Time Status XR hand RT min 3V * [id number] Stat Exams 12/30/24 19:19 Completed Radiology Impressions Hand X-Ray 12/30/24 19:19 IMPRESSION: No acute findings. Laboratory Results WBC 10.10 10^3/uL (3. 29-11.43) 12/30/24 19:48 RBC 5.98 10^6/uL (3.8 5-5.65) H 12/30/24 19:48 Hgb 17.10 g/dL (11.27 -16.99) H 12/30/24 19:48 Hct 51.4 % (37-53) 12/30/24 19:48 MCV 86.0 fl (82-101) 12/30/24 19:48 MCH 28.6 pg (27-33) 12/30/24 19:48 MCHC 33.3 g/dL (30-55) 12/30/24 19:48 RDW 11.6 % (12.1-15.1 ) L 12/30/24 19:48 Plt Count 278 10^3/cmm (157 -399) 12/30/24 19:48 MPV 10.3 fL (7.4-10.4 ) 12/30/24 19:48 Neut % (Auto) 77.0 % 12/30/24 19:48 Lymph % (Auto) 14.4 % 12/30/24 19:48 Fillmore % (Auto) 7.1 % 12/30/24 19:48 Eos % (Auto) 0.4 % 12/30/24 19:48 Baso % (Auto) 0.8 % 12/30/24 19:48 Neut # (Auto) 7.78 10^3/uL (1.8 -7.7) H 12/30/24 19:48 Lymph # (Auto) 1.5 10^3/uL (0.8- 4.8) 12/30/24 19:48 Fillmore # (Auto) 0.7 10^3/uL (0.2- 0.9) 12/30/24 19:48 Eos # (Auto) 0.0 10^3/uL (0.0- 0.8) 12/30/24 19:48 Baso # (Auto) 0.1 10^3/uL (0.0- 0.1) 12/30/24 19:48 Nucleated RBC % (a uto) 0 % 12/30/24 19:48 Nucleated RBCs # 0.0 /100WBC 12/30/24 19:48 Sodium 136 mmol/L (136-1 45) 12/30/24 19:48 Potassium 4.2 mmol/L (3.5-5 .1) 12/30/24 19:48 Chloride 99 mmol/L (98-107 ) 12/30/24 19:48 Carbon Dioxide 23 mmol/L (22-29) 12/30/24 19:48 Anion Gap 18.2 (5-19) 12/30/24 19:48 BUN 14 mg/dL (6-20) 12/30/24 19:48 Creatinine 0.8 mg/dL (0.7-1. 2) 12/30/24 19:48 GFR Calculation 101.5 mL/min (90- 130) 12/30/24 19:48 Glucose 280 mg/dL (65-115 ) H 12/30/24 19:48 POC Glucose 251 mg/dL (70-110 ) H 01/01/25 11:20 Calculated Osmolal ity 293 mOsm/kg (285- 295) 12/30/24 19:48 Calcium 9.5 mg/dL (8.5-10 .5) 12/30/24 19:48 Total Bilirubin 1.1 mg/dL (0.15-1 .2) 12/30/24 19:48 AST 17 U/L (0-40) 12/30/24 19:48 ALT 23 U/L (0-41) 12/30/24 19:48 Alkaline Phosphata se 96 U/L (40-130) 12/30/24 19:48 Total Protein 7.6 g/dL (6.6-8.7 ) 12/30/24 19:48 Albumin 4.5 g/dL (3.5-5.2 ) 12/30/24 19:48 Globulin 3.1 g/dL (1.3-4.6 ) 12/30/24 19:48 Salicylates < 0.3 mg/dL (3-10 ) L 12/30/24 19:48 Urine Opiates Scre en Negative ng/mL (N egative) 12/30/24 21:33 Acetaminophen < 5.0 ug/mL (10-3 0) L 12/30/24 19:48 Ur Barbiturates Sc reen Negative ng/mL (N egative) 12/30/24 21:33 Ur Phencyclidine S crn Negative ng/mL (N egative) 12/30/24 21:33 Ur Amphetamines Sc reen Negative ng/mL (N egative) 12/30/24 21:33 U Benzodiazepines Scrn Negative ng/mL (N egative) 12/30/24 21:33 Urine Cocaine Scre en Negative ng/mL (N egative) 12/30/24 21:33 U Marijuana (THC) Screen Negative ng/mL (N egative) 12/30/24 21:33 Ethyl Alcohol < 10 mg/dL (0-10) 12/30/24 19:48 Vitals: Last Vital Signs Temp 98.1 F 12/31/24 20:15 Pulse 79 01/01/25 06:00 Resp 16 01/01/25 06:00 BP 101/68 01/01/25 06:00 Pulse Ox 97 01/01/25 06:00 O2 Del Method Room Air 12/31/24 14:00 Discharge Plan Discharge Patient Disposition: Home Condition: Stable Prescriptions: Continued insulin detemir U-100 100 unit/mL (3 mL) insulin pen 15 unit SUBCUT DAILY Qty: 15 3RF Rx Instructions: Inject 15U SQ daily. Increase by 5 units every 3 days that fasting glucose>150 insulin glargine U-300 conc [Toujeo SoloStar U-300 Insulin] 300 unit/mL (1.5 mL) insulin pen 15 unit SUBCUT DAILY Qty: 4.5 2RF Rx Instructions: Inject 15U SQ daily. atorvastatin 20 mg tablet 20 mg PO BEDTIME metformin 1,000 mg tablet 1,000 mg PO BID Changed sertraline 50 mg tablet 50 mg PO DAILY 30 Days Qty: 30 1RF Discharge Order = DC NOW: Discharge Order (Routine); Ordered 01/01/25 Ordered By: Giovanni Albrecht Referrals: [facility] [Outside] - 1-3 days Referral Note: No appoinmtents available at discharge and you will be called regarding an assessment for services. Jaime Venegas MD [Primary Care Provider, [facility]] Discharge Diet: Diabetic Discharge Activity: Resume usual activity Patient Instructions: Anxiety (DC), Suicide Prevention (DC), Opioid Safety, Patient Portal & [facility] Instructions Stand Alone Forms: Work/School Release Discharge Attestations NPU Time Spent in Discharge Care*: less than 30 min Specific Discharge Activities: Specific discharge activities: educating patient, discussing with hospice case manager/social workers/dc planners, documenting/other paperwork and evaluating patient/reviewing data Coding Level of Care Code Acute Code for Chg Fwd Diagnoses Suicidal ideation R45.851 Anxiety F41.9 Parent-child relational problem Z62.820 Marital/partner relational problem Z63.0
[2025-01-01 13:51] VITALS: BP 151/92; PULSE 110; RESP 16; TEMP 37.2; O2SAT 92
[2025-01-01 13:59] VITALS: BP 151/92; PULSE 110; RESP 16; TEMP 37.2; O2SAT 92
== END 2025-01-01 14:25 | disposition home or self-care (01) ==
LOC: ER 19:38 → NP 20:29
PROVIDERS: Admitting Provider Psychiatry & Neurology Psychiatry; Emergency Provider Emergency Medicine; PCP Family Medicine; Visit Provider Psychiatry & Neurology Psychiatry
DX: R45.851 Suicidal ideations (principal); F41.9 Anxiety disorder, unspecified; Z62.820 Parent-biological child conflict; Z63.0 Problems in relationship with spouse or partner; E11.9 Type 2 diabetes mellitus without complications; Z79.4 Long term (current) use of insulin; Z79.84 Long term (current) use of oral hypoglycemic drugs; Z87.891 Personal history of nicotine dependence; E78.00 Pure hypercholesterolemia, unspecified
CPT/HCPCS: 36415; 36416; 73130; 80053; 80306; 80307; 82962; 85025; 96372; 97150; 97165; 99285; G0378; J1815; J9999

== ENCOUNTER → 2025-03-26 15:43 | Outpatient (BNVA) | payer OTHER, SELFPAY | PROVIDERS: PCP Family Medicine; Visit Provider Family Medicine | DX: Z13.6 Encounter for screening for cardiovascular disorders (principal); E11.9 Type 2 diabetes mellitus without complications; Z51.81 Encounter for therapeutic drug level monitoring | CPT/HCPCS: 80053; 80061; 83036; 85025 ==